=== PATIENT | female | born 1945 | race Caucasian/White ===

== ENCOUNTER 2019-04-03 17:26 | Observation (INO) | payer OTHER ==
[~2019-04-03] VITALS: Ht 152.4 cm; Wt 63.5 kg
[2019-04-03 18:25] LABS: BASOPHILS # (AUTO) 0.1 (0.0-0.1); BASOPHILS % 1.3 % (0.0-1.0); EOSINOPHILS # (AUTO) 0.3 (0.0-0.4); EOSINOPHILS % 3.2 % (0.0-6.0); HEMATOCRIT 43.3 % (34.2-44.1); HEMOGLOBIN 14.3 g/dL (12.0-16.0); LYMPHOCYTES # (AUTO) 2.4 (1.0-3.2); LYMPHOCYTES % 22.6 % (18.0-39.1); MEAN CORPUSCULAR HEMOGLOBIN 29.1 pg (28-32); MEAN CORPUSCULAR VOLUME 88.2 fL (81-99); MONOCYTES # (AUTO) 1.1 (0.2-0.8); MONOCYTES % 10.5 % (4.4-11.3); NEUTROPHILS # (AUTO) 6.5 (2.1-6.9); NEUTROPHILS % 61.9 % (38.7-80.0); PLATELET COUNT 306 x10e3/uL (140-360); RED BLOOD COUNT 4.91 x10e6/uL (3.6-5.1); RED CELL DISTRIBUTION WIDTH 12.8 % (11.7-14.4)
[2019-04-03 18:33] LABS: INR 0.9; PROTHROMBIN TIME 12.6 seconds (11.9-14.5)
[2019-04-03 18:34] LABS: PARTIAL THROMBOPLASTIN TIME 30.2 seconds (23.8-35.5)
[2019-04-03 18:43] LABS: ALANINE AMINOTRANSFERASE 24 IU/L (0-55); ALBUMIN 4.3 g/dL (3.5-5.0); ALBUMIN/GLOBULIN RATIO 1.3 (0.8-2.0); ALKALINE PHOSPHATASE 92 IU/L (40-150); ANION GAP 14.5 mmol/L (8-16); BLOOD UREA NITROGEN 13 mg/dL (7-26); BUN/CREATININE RATIO 12 (6-25); CALCIUM 9.6 mg/dL (8.4-10.2); CARBON DIOXIDE 25 mmol/L (22-29); CHLORIDE 103 mmol/L (98-107); CREATINE KINASE 98 IU/L (29-168); CREATININE, SERUM 1.07 mg/dL (0.57-1.11); EST GLOMERULAR FILTRATION RATE 50 ML/MIN (60-); GLUCOSE 92 mg/dL (74-118); POTASSIUM 3.5 mmol/L (3.5-5.1); SODIUM 139 mmol/L (136-145)
--- NOTE | 2019-04-03 19:24 | Diagnostic Imaging Report ---
EXAMINATION: CHEST SINGLE (PORTABLE) INDICATION: ^CHEST PAIN COMPARISON: None FINDINGS: AP view TUBES and LINES: None. LUNGS: Lungs are well inflated. Lungs are clear. There is no evidence of pneumonia or pulmonary edema. Prominent central pulmonary vasculature. PLEURA: No pleural effusion or pneumothorax. HEART AND MEDIASTINUM: Cardiac size is mildly enlarged. Aortic calcifications. BONES AND SOFT TISSUES: No acute osseous lesion. Soft tissues are unremarkable. Degenerative changes in the spine and shoulders. UPPER ABDOMEN: No free air under the diaphragm. IMPRESSION: Mild cardiomegaly and pulmonary vascular congestion. Signed by: Guevara Denny DO on 04/03/2019 7:21 PM
[2019-04-03] MEDS ORDERED: ONDANSETRON HCL INJ 2MG/ML 2ML 2 MG/ML VIAL IV PRN (20:15)
[2019-04-03] MEDS ORDERED: NITROGLYCERIN 0.4 MG SUBL SL PRN (20:15)
--- OUTSIDE RECORDS SUMMARY | 2019-04-03 21:38 | XMS REPORT ---
Author Author [facility] Address Unknown Phone Unavailable Care Team Providers Care Basket Weaver Name Role Phone Karen TOLEDO Unavailable Unavailable Problems This patient has no known problems. Allergies, Adverse Reactions, Alerts This patient has no known allergies or adverse reactions. Medications This patient has no known medications. Results Test Description Test Time Test Comments Text Results Atomic Results Result Comments CHEST SINGLE (PORTABLE) 2019-04-03 19:20:00 [place] [address] Patient Name: LEENA CERVANTES MR #: [id number] : 1945 Age/Sex: 73/F Req #: [id number] Adm Physician: Ordered by: JUSTIN TOLEDO MD Report #: [id number] Location: ER Room/Bed: Procedure: [id number] DX/CHEST SINGLE (PORTABLE) Exam Date: 04/03/19 Exam Time: 1835 REPORT STATUS: Signed EXAMINATION: CHEST SINGLE (PORTABLE) INDICA TION: CHEST PAIN COMPARISON: None FINDINGS: AP view TUBES and LINES: None. LUNGS: Lungs are well inflated. Lungs are clear. There is no evidence of pneumonia or pulmonary edema. Prominent central pulmonary vasculature. PLEURA: No pleural effusion or pneumothorax. HEART AND MEDIASTINUM: Cardiac size is mildly enlarged. Aortic calcifications. BONES AND SOFT TISSUES: No acute osseous lesion. Soft tissues are unremarkable. Degenerative changes in the spine and shoulders. UPPER ABDOMEN: No free air under the diaphragm. IMPRESSION: Mild cardiomegaly and pulmonary vascular congestion. Signed by: Guevara Denny DO on 04/03/2019 7:21 PM Dictated By: GUEVARA DENNY DO 20 Transcribed By: MAL on 04/03/191920 COPY TO: JUSTIN TOLEDO MD
--- NOTE | 2019-04-03 21:57 | NUR ---
patient arrived in unit, offered bed, admission started.
[2019-04-03 22:45] LABS: CREATINE KINASE 79 IU/L (29-168)
[2019-04-03 23:14] VITALS: BP 145/78
[2019-04-03 23:40] VITALS: BP 165/71
[2019-04-04 04:00] VITALS: BP 143/65
[2019-04-04 05:53] LABS: BASOPHILS # (AUTO) 0.1 (0.0-0.1); BASOPHILS % 1.2 % (0.0-1.0); EOSINOPHILS # (AUTO) 0.3 (0.0-0.4); EOSINOPHILS % 3.5 % (0.0-6.0); HEMOGLOBIN 12.7 g/dL (12.0-16.0); LYMPHOCYTES # (AUTO) 2.6 (1.0-3.2); LYMPHOCYTES % 28.2 % (18.0-39.1); MEAN CORPUSCULAR HGB CONC 32.6 g/dL (31-35); MONOCYTES # (AUTO) 1.2 (0.2-0.8); MONOCYTES % 12.4 % (4.4-11.3); NEUTROPHILS % 54.1 % (38.7-80.0); PLATELET COUNT 274 x10e3/uL (140-360); RED BLOOD COUNT 4.38 x10e6/uL (3.6-5.1); RED CELL DISTRIBUTION WIDTH 12.7 % (11.7-14.4)
[2019-04-04 06:14] LABS: CREATINE KINASE 71 IU/L (29-168)
[2019-04-04 06:54] LABS: ALBUMIN 3.6 g/dL (3.5-5.0); ALBUMIN/GLOBULIN RATIO 1.3 (0.8-2.0); CALCIUM 9.2 mg/dL (8.4-10.2); CHOL/HDL RATIO 5.7 (3.0-3.6)
--- NOTE | 2019-04-04 07:00 | NUR ---
RECEIVED BEDSIDE REPORT FROM SUPERVISOR PAIRING AND INSPECTING RN. PT DENIES NEEDS AT THIS TIME.
[2019-04-04 07:37] VITALS: BP 127/59
[2019-04-04 08:00] VITALS: BP 127/59
[2019-04-04] MEDS ORDERED: ASPIRIN 81 MG ENTERIC COATED PO SCH (09:00)
--- NOTE | 2019-04-04 09:30 | NUR ---
PT OFF THE FLOOR FOR STRESS TESTING.
[2019-04-04] MEDS ORDERED: REGADENOSON 0.4 MG/5 ML SYR IV ONE (09:53)
[2019-04-04] MEDS: ISOSORBIDE MONONITRATE 20 MG TAB PO SCH ×2 (09:57→14:06)
[2019-04-04] MEDS ORDERED: ONDANSETRON HCL 4 MG ORAL DISINTEGRATING TAB PO PRN (12:30)
--- NOTE | 2019-04-04 13:13 | NUR ---
PT BACK TO THE FLOOR FROM STRESS TEST. VITALS WNL. PT DENIES NEEDS AT THIS TIME.
[2019-04-04 13:24] VITALS: BP 167/73
--- NOTE | 2019-04-04 15:44 | History and Physical ---
PRIMARY CARE PHYSICIAN: Dr. Vito Guerrero. APPLICATIONS PROGRAMMER: Dr. Yuri Hightower. CHIEF COMPLAINT: Atypical chest pain. HISTORY OF PRESENT ILLNESS: The patient is a 73-year-old female with atypical chest pain. Nonradiating pain, however. The patient has this pain previously. She was supposed to see Dr. Yuri Hightower for further evaluation. 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 The patient is otherwise stable at this time. PAST MEDICAL HISTORY: Atherosclerotic heart disease, heart murmur, and hypertension. PAST SURGICAL HISTORY: Partial thyroidectomy, carpal tunnel surgery, and hysterectomy. SOCIAL HISTORY: The patient does not smoke or use alcohol. No regular drugs. ALLERGIES: TO HCTZ, CODEINE, AND STATIN DRUGS. HOME MEDICATIONS: List is reviewed. REVIEW OF SYSTEMS: As mentioned above. PHYSICAL EXAMINATION: VITAL SIGNS: Temperature is 98, blood pressure 127/59, pulse rate is 67, and respirations 18. GENERAL: The patient is not in acute distress. She is awake. HEENT: Normocephalic and atraumatic. Anicteric. NECK: Supple grossly. PULMONARY: Clear. CARDIOVASCULAR: Regular rate and rhythm. ABDOMEN: Soft, nontender, non-distention. EXTREMITIES: No cyanosis or edema. NEUROLOGIC: No focal deficit. LABORATORY DATA: Otherwise unremarkable. Cardiac enzymes are negative. Chest x-ray otherwise unremarkable. IMPRESSION: Atypical chest pain with negative cardiac enzymes. The patient had negative 3 sets of cardiac enzyme. Her LDL is 113 and HDL is 32. The total cholesterol HDL ratio was 5.7. Albumin is 4.3. BUN and creatinine 13 and 1.0. The patient is otherwise stable. Echocardiogram is done. We will follow up with Dr. Yuri Hightower and his recommendation. The patient had an ejection fraction of 65%. MD MAURY Scott/AMADOU /[id number]
--- NOTE | 2019-04-04 17:03 | Consultation ---
DATE OF CONSULTATION: CHIEF COMPLAINT: Chest pain at rest radiating to the left and right shoulders and arms. HISTORY OF PRESENT ILLNESS: Jacquelin Morataya is a 73-year-old female with a primary history of hypertension, heart murmurs, thyroid nodules, status post thyroidectomy 8 years ago, who is admitted complaining of chest pain that radiates to the left shoulder and the right shoulder that started about 4 weeks ago. Chest pain happens at rest and associated with mild shortness of breath, but not worsened by anything. Chest pain was relieved completely after taking nitroglycerine once. The patient also complained of having palpitations that started about 3 years ago and has been taking potassium and magnesium replacements to prevent the palpitations according to the patient. She also complains of having abdominal reflux and has been burping more during the day, but not during nighttime. Denies any nausea or vomiting. No complaints of abdominal pain. PAST MEDICAL HISTORY: Hypertension, murmurs, thyroid nodules. PAST SURGICAL HISTORY: Thyroidectomy 8 years ago and hysterectomy. SOCIAL HISTORY: Non alcohol user. No tobacco use. No illegal drug use. FAMILY HISTORY: Mother is ; of throat cancer. She also had diabetes and hypertension. Father is ; of aneurysm. He had hypertension. REVIEW OF SYSTEMS: CONSTITUTIONAL: Energy level generally good. HEENT: No headaches. No change in vision, nose or ear problems or sore throat. RESPIRATORY: No history of pleurisy, cough, wheezing, asthma, hemoptysis, PE, pneumonia. CARDIAC: Denies fatigue, but complains of intermittent lightheadedness or dizziness. Also, complain of intermittent or occasional palpitations. She also complained of chest pain radiating to the right and left shoulders and arms. See HPI. VASCULAR: No history of claudication, DVT, or aneurysm. GI: Complaining of having abdominal reflux symptoms like having to burp more, but denies nausea or vomiting or change in stool pattern. Denies epigastric pain. : No complaints of dysuria or nocturia. NEUROMUSCULAR: She complains of pain to bilateral hands more on her thumbs. Also, complaining of left lower back pain. PHYSICAL EXAMINATION: VITAL SIGNS: Temperature is 97.0, pulse is 67, BP is 127/59, respiratory rate is 16, SPO2 of 97% on room air. GENERAL: Ms. Jacquelin Morataya appears to be alert, oriented, and cooperative. Slightly obese elderly woman, sitting in bed, breathing with no difficulty. SKIN: Normal in appearance, texture, and temperature, warm and dry. HEENT: Head normocephalic atraumatic. Normal eyelids and sclerae. No lymphadenopathy. Carotid artery upstroke is normal bilaterally without bruits. No JVD. RESPIRATORY: Normal respiratory effort. Lungs are clear to auscultation bilaterally. No wheezing, rhonchi, rales, or rubs. CARDIOVASCULAR: S1 and S2 audible. No significant murmurs. Intercostal space at the midclavicular line. GASTROINTESTINAL: Soft, nontender, nondistended bowel sounds are present. EXTREMITIES: No cyanosis. No clubbing or edema. NEUROVASCULAR: Intact. Pulses are palpable 2+ throughout. NEUROLOGICAL: Moderate and sensory examination of the upper and lower extremities are normal. Reflexes are normal and symmetrical bilaterally. IMAGING DATA: EKG is normal sinus rhythm. Echocardiogram is normal. IMPRESSION AND PLAN: Ms. Jacquelin Morataya is having atypical chest pain with no dyspnea on examination. Echocardiogram is normal and cardiac enzymes are normal. EKG is unremarkable. PLAN: 1. Carefully monitor the patient for now for any chest pain. 2. Continue home medications for hypertension. Continue aspirin. 3. Start PPI and we will do inpatient nuclear stress testing today. If nuclear stress testing is negative, then it is okay for the patient to go home. Dictated by Gayle Rogers NP MD LAURA Mobley/AMADOU /[id number]
--- NOTE | 2019-04-04 21:44 | Operative Report ---
DATE OF PROCEDURE: 04/04/2019 SURGEON: Yuri Hightower MD PROCEDURE: Lexiscan nuclear stress test. INDICATION: Chest pain. COMPLICATIONS: None. ANESTHESIA: None. TECHNIQUE: The patient was given 10.2 millicuries of Myoview. Resting images were obtained in the horizontal long axis, vertical long axis, and short axis. The patient was then hooked up to the EKG machine. Lexiscan was infused over 15 seconds. The patient had no symptoms during Lexiscan infusion. The patient's stress images were obtained 30 minutes after completion of Lexiscan infusion using 30.6 millicuries of Myoview. Stress images were obtained in the horizontal long axis, vertical long axis, and short axis. RESULTS: 1. The resting EKG demonstrated normal sinus rhythm with nonspecific ST and T-wave changes. 2. There were no EKG changes and no symptoms during Lexiscan infusion. 3. The patient had normal perfusion to all segments of the myocardium in both stress and rest. 4. There was normal left ventricular size and function with an ejection fraction of 56%. CONCLUSION: The patient had a negative Lexiscan nuclear stress test with no evidence of ischemia. There was normal left ventricular size and function with an ejection fraction of 56%. Yuri Hightower MD [facility] /[id number] cc: MD Vito Scott MD
== END 2019-04-04 15:23 | disposition home or self-care (01) ==
LOC: ER 17:26 → ERHOLD 20:12 → IMCU 21:50
PROVIDERS: ADMIT Internal Medicine; ATTEND Internal Medicine
DX: R07.89 Other chest pain (principal); I10 Essential (primary) hypertension; I25.2 Old myocardial infarction; Z82.49 Family history of ischemic heart disease and other diseases of the circulatory system; I25.10 Atherosclerotic heart disease of native coronary artery without angina pectoris; E89.0 Postprocedural hypothyroidism
CPT/HCPCS: 36415 ×2; 71045; 78452; 80053 ×2; 80061; 82550 ×2; 82553 ×2; 83880; 84484 ×2; 85025 ×2; 85610; 85730; 93005; 93017; 93306; 99284; A9502; G0378 ×2; J2785